=== PATIENT | male | born 1965 | race Caucasian/White ===

== ENCOUNTER 2016-04-07 20:54 | Emergency (ER) | payer BC, MEDICAID ==
[2016-04-07 21:04] VITALS: BP 146/52
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
== END 2016-04-07 23:03 | disposition home or self-care (01) ==
LOC: ED 20:54
DX: S51.012A Laceration without foreign body of left elbow, initial encounter (principal); T14.8 Other injury of unspecified body region; Y09 Assault by unspecified means; Y92.9 Unspecified place or not applicable; Y99.9 Unspecified external cause status
CPT/HCPCS: 99282

== ENCOUNTER 2017-05-02 16:07 | Emergency (ER) | payer BC, MEDICAID ==
--- NOTE | 2017-05-02 18:12 | RAD ---
INDICATION: Right thumb pain COMPARISON: None TECHNIQUE: AP, lateral, and oblique views were obtained. FINDINGS: There are no acute bony findings. 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 No significant soft tissue abnormality or foreign body. IMPRESSION: MILD OSTEOARTHRITIS. NO ACUTE FINDINGS.
--- NOTE | 2017-05-02 18:14 | UC ---
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 Tetanus UTD per pt- w/i 5 yrs - History Of Current Complaint Chief Complaint: UCUpperExtremity Stated Complaint: THUMB LAC WC Time Seen by Provider: 05/02/17 17:31 Hx Obtained From: Patient Laceration Location: Finger - right thumb Onset/Duration: Sudden Onset Severity: Moderate Pain Intensity: 4 Aggravating Factors: Movement - Allergies/Home Medications Allergies/Adverse Reactions: Allergies Allergy/AdvReac Type Severity Reaction Status Date / Time No Known Allergies Allergy Verified 11/13/14 08:07 PMH/Surg Hx/FS Hx/Imm Hx Previously Healthy: Yes Other History Of: Negative For: Anticoagulant Therapy - Surgical History Surgical History: Yes Surgery Procedure, Year, and Place: R ROTATOR CUFF REPAIR. L WRIST SURGERY. TONSILLECTOMY A CHILD - Social History Alcohol Use: Rare Substance Use Type: Marijuana Substance Use Comment - Amount & Last Used: RARE MARIJUANA USE Smoking Status (MU): Never Smoked Tobacco Review of Systems Constitutional: Negative Skin: Other - right thumb laceration Eyes: Negative ENT: Negative Respiratory: Negative Cardiovascular: Negative Gastrointestinal: Negative Genitourinary: Negative Motor: Negative Neurovascular: Negative Musculoskeletal: Negative Neurological: Negative Psychological: Negative All Other Systems Reviewed And Are Negative: Yes Physical Exam Triage Information Reviewed: Yes Appearance: Well-Appearing Vital Signs: Initial Vital Signs Temp 36.3 C 05/02/17 16:27 Pulse 105 05/02/17 16:27 Resp 18 05/02/17 16:27 BP 161/100 05/02/17 16:27 Pulse Ox 94 05/02/17 16:27 Eye Exam: Normal ENT Exam: Normal Dental Exam: Normal Neck exam: Normal Neck: Positive: 1 Respiratory Exam: Normal Cardiovascular Exam: Normal Abdominal Exam: Normal Musculoskeletal Exam: Normal Neurological Exam: Normal Psychological Exam: Normal Skin Exam: Normal Skin: Positive: significant lesion(s) - right edge of thumb laceration, linear clean, longitudinal width about 2cm, bleeding controlled with manual compression Laceration Repair - Laceration Repair 1 Description: Linear - wound irriagted with saline, dried, wound edges approximated with skin adhesive, pt tolerated procedure well Laceration Size After Repair: Length (cm) - 2, Width (mm) - 2 Contamination/FB Removal: none Cleansing Completed Via Routine Prep: Yes Irrigation With Pressure Irrigation Device: No Closure Material: Skin Adhesive Closure Method: Single Layer Suture Of: Skin Laceration Course/Dx - Course/Dx Course Of Treatment: XR right thumb neg - Differential Dx - Laceration/Wound Provider Diagnoses: Right thumb laceration Discharge - Discharge Plan Condition: Stable Disposition: HOME Prescriptions: Cephalexin CAP* [Keflex CAP*] 500 mg PO TID 7 Days #14 cap Patient Education Materials: Skin Adhesive Care (ED), Steristrips (ED) Referrals: Wilder Vasquez MD [Primary Care Provider] - Additional Instructions: return to clinic if pain worsens or wound opens keep sterri-strips intact, and DRY, cover wound when showering RETURN TO CLINIC IN 2 DAYS FOR A WOUND CHECK
[2017-05-02 18:24] VITALS: BP 110/70
== END 2017-05-02 18:38 | disposition home or self-care (01) ==
LOC: UCEAST 16:07
DX: S61.011A Laceration without foreign body of right thumb without damage to nail, initial encounter (principal); W29.8XXA Contact with other powered hand tools and household machinery, initial encounter; Y93.9 Activity, unspecified; Y92.511 Restaurant or cafe as the place of occurrence of the external cause; Y99.0 Civilian activity done for income or pay
CPT/HCPCS: 12001; 99212; 99213; G0463

== ENCOUNTER 2018-07-10 21:59 | Emergency (ER) | payer BC, MEDICAID ==
[2018-07-11] MEDS ORDERED: Tetan/Diph/Pertus SYR(Tdap)* 0.5 ML SYR(BOOSTRIX) use SYR IM ONE (01:17)
[2018-07-11] MEDS ORDERED: Lidocaine 2% EPI 1:200000 MPF*10-20 ML VIAL ONE (01:18)
--- NOTE | 2018-07-11 01:29 | ED ---
Laceration/Wound HPI - HPI Summary HPI Summary: This patient is a 53 year old male presenting to [facility] with a chief complaint of laceration on his right leg 3 hours ago. The patient says he fell on a fence and cut his leg. He says the bleeding is controlled and he is currently not in any pain. The patient does not know when he received his last tetanus vaccine. - History of Current Complaint Stated Complaint: RT LEG LAC PER PT Time Seen by Provider: 07/11/18 01:10 Hx Obtained From: Patient Onset/Duration: Lasting Hours Pain Intensity: 0 Pain Scale Used: 0-10 Numeric - Allergy/Home Medications Allergies/Adverse Reactions: Allergies Allergy/AdvReac Type Severity Reaction Status Date / Time No Known Allergies Allergy Verified 07/10/18 22:10 PMH/Surg Hx/FS Hx/Imm Hx Endocrine/Hematology History: Denies: Hx Anticoagulant Therapy, Hx Blood Disorders GI History: Reports: Hx Gastroesophageal Reflux Disease Sensory History: Reports: Hx Contacts or Glasses Denies: Hx Hearing Aid Opthamlomology History: Reports: Hx Contacts or Glasses Psychiatric History: Reports: Hx Anxiety - Surgical History Surgery Procedure, Year, and Place: R ROTATOR CUFF REPAIR. L WRIST SURGERY. TONSILLECTOMY A CHILD Hx Anesthesia Reactions: No Infectious Disease History: No Infectious Disease History: Denies: Traveled Outside the [place] in Last 30 Days - Family History Known Family History: Negative: Hypertension - Social History Alcohol Use: Weekly Alcohol Amount: 1-2 DRINKS Substance Use Type: Reports: Marijuana Substance Use Comment - Amount & Last Used: RARE MARIJUANA USE Smoking Status (MU): Never Smoked Tobacco Review of Systems Negative: Fever Positive: Other - Laceration on right leg All Other Systems Reviewed And Are Negative: Yes Physical Exam - Summary Physical Exam Summary: VITAL SIGNS: Reviewed. GENERAL: Patient is a well-developed and nourished FEMALE who is lying comfortable in the stretcher. Patient is not in any acute respiratory distress. HEAD AND FACE: No signs of trauma. No ecchymosis, hematomas or skull depressions. No sinus tenderness. EYES: PERRLA, EOMI x 2, No injected conjunctiva, no nystagmus. EARS: Hearing grossly intact. Ear canals and tympanic membranes are within normal limits. MOUTH: Oropharynx within normal limits. NECK: Supple, trachea is midline, no adenopathy, no JVD, no carotid bruit, no c- spine tenderness, neck with full ROM CHEST: Symmetric, no tenderness at palpation LUNGS: Clear to auscultation bilaterally. No wheezing or crackles. CVS: Regular rate and rhythm, S1 and S2 present, no murmurs or gallops appreciated. ABDOMEN: Soft, non-tender. No signs of distention. No rebound no guarding, and no masses palpated. Bowel sounds are normal. EXTREMITIES: FROM in all major joints, no edema, no cyanosis or clubbing. NEURO: Alert and oriented x 3. No acute neurological deficits. Speech is normal and follows commands. SKIN: Dry and warm. 2 cm laceration over upper right leg. Triage Information Reviewed: Yes Vital Signs On Initial Exam: Initial Vitals Temp Pulse Resp BP Pulse Ox 97.7 F 71 16 110/78 96 07/10/18 22:08 07/10/18 22:08 07/10/18 22:08 07/10/18 22:08 07/10/18 22:08 Vital Signs Reviewed: Yes Procedures - Laceration/Wound Repair 1 Location: lower extremity Anesthesia: 2.0%, [place], Epi Closure: [place] #__ Diagnostics - Vital Signs Vital Signs Temp Pulse Resp BP Pulse Ox 07/11/18 00:08 97.4 F 70 16 132/83 99 07/10/18 22:08 97.7 F 71 16 110/78 96 - Laboratory Lab Statement: Any lab studies that have been ordered have been reviewed, and results considered in the medical decision making process. Laceration Repair Course/Dx - Course Course Of Treatment: This patient is a 53 year old male presenting to [facility] with a chief complaint of laceration on his right leg 3 hours ago. The patient received billy to close his laceration. A plan for discharge was discussed with the patient and he was agreeable with this plan. - Clinical Impression Provider Diagnoses: Laceration Discharge - Sign-Out/Discharge Documenting (check all that apply): Patient Departure - Discharge Patient Received Moderate/Deep Sedation with Procedure: No - Discharge Plan Condition: Stable Disposition: HOME Patient Education Materials: Laceration (ED) Referrals: Wilder Vasquez MD [Primary Care Provider] - Additional Instructions: Get stitches removed in 2 weeks. Return to ED with any new or worsening symptoms. - Attestation Statements Document Initiated by Scribe: Yes Documenting Scribe: Nelson Gonzalez Provider For Whom Scribe is Documenting (Include Credential): Cherie Vickers MD Scribe Attestation: I, Nelson Gonzalez, scribed for Cherie Vickers MD on 07/11/18 at 0144. Status of Scribe Document: Ready
[2018-07-11 01:57] VITALS: BP 152/91
== END 2018-07-11 01:40 | disposition home or self-care (01) ==
LOC: ED 21:59
DX: S71.111A Laceration without foreign body, right thigh, initial encounter (principal); W18.09XA Striking against other object with subsequent fall, initial encounter; Y92.9 Unspecified place or not applicable; Z23 Encounter for immunization
CPT/HCPCS: 12001; 90471; 90715; 99282

== ENCOUNTER 2021-09-17 08:30 | Inpatient (IN) ==
[2021-09-17] MEDS ORDERED: Cefepime 2 GM in Dextrose 2 GM/50 ML BAG IV ONE (08:40)
[2021-09-17] MEDS ORDERED: Morphine 10 MG/ML VIAL (1 ml) IV PRN (08:54)
[2021-09-17] MEDS ORDERED: oxyCODONE/Acetamin 5/325 mg TAB PO PRN (08:54)
[2021-09-17] MEDS ORDERED: Lactated Ringers 1000 ml BAG 1,000 ML IV ONE (08:54)
[2021-09-17] MEDS ORDERED: Ondansetron 4 mg VIAL 2 MG/ML 2 ml VIAL IV PRN ×2 (08:54→19:22)
[2021-09-17] MEDS ORDERED: Vancomycin 1,500 MG in NS 0.9% 250 ml 250 ML IVPB ONE (09:00)
[2021-09-17] MEDS ORDERED: Lactated Ringers 1000 ml BAG 1,000 ML IV SCH (09:00)
[2021-09-17] MEDS ORDERED: Vancomycin per Pharmacy 1 EA NOTE FOLLOW UP SCH (10:00)
[2021-09-17 10:09] LABS: ABS Lymphocytes 0.9 10^3/ul (1.0-4.8); ABS Neutrophils 8.2 10^3/ul (1.5-7.7); Eosinophil % 0.2 %; Hematocrit 41 % (42-52); Hemoglobin 14.4 g/dL (14.0-18.0); Lymphocyte % 9.3 %; Mean Corpuscular HGB Conc 35 g/dL (31-36); Mean Corpuscular Hemoglobin 32 pg (27-31); Mean Corpuscular Volume 89 fL (80-94); Mean Platelet Volume 7.7 fL (7.4-10.4); Platelet Count 471 10^3/uL (150-450); Red Blood Count 4.56 10^6 /uL (4.18-5.48); Red Cell Distribution Width 12 % (10-15); White Blood Count 10.2 10^3/uL (3.5-10.8)
[2021-09-17 10:14] LABS: INR 1.41 (0.89-1.11)
[2021-09-17 10:48] LABS: Albumin 3.5 g/dL (3.2-5.2); Albumin/Globulin Ratio 1.1 (1-3); C Reactive Protein 139.84 mg/L (<8.01); Globulin 3.2 g/dL (2-4); Total Bilirubin 1.2 mg/dL (0.2-1.0); Total Protein 6.7 g/dL (6.4-8.9); eGFR CKD-EPI 107.9 (>60)
[2021-09-17] MEDS ORDERED: Magnesium Hydroxide LIQ 30 ML UDC PO PRN (12:00)
[2021-09-17] MEDS ORDERED: Senna TAB 8.6 mg TAB PO PRN (12:00)
[2021-09-17] MEDS ORDERED: ceFAZolin 2 GM in NS PREMIX 2 GM/100 ML BAG IVPB SCH ×2 (18:00→22:00)
[2021-09-17] MEDS ORDERED: Famotidine IV 10 MG/ML 2 ml VIAL (20 mg) ONE (18:07)
[2021-09-17] MEDS ORDERED: Naloxone 0.4 mg VIAL 0.4 mg/ml 1 ml VIAL IV PRN (19:22)
[2021-09-17] MEDS ORDERED: HYDROmorphone 1 MG/1 ML SYRINGE IV PRN (19:22)
[2021-09-17] MEDS ORDERED: Cefepime 2 GM in Dextrose 2 GM/50 ML BAG IV SCH (22:00)
[2021-09-17] MEDS: ceFAZolin 2 GM PREMIX 2 GM/50 ML BAG IVPB SCH (22:46)
[2021-09-17] MEDS: Magnesium Hydroxide LIQ 30 ML UDC PO SCH (22:54)
[2021-09-18] MEDS: ceFAZolin 2 GM PREMIX 2 GM/50 ML BAG IVPB SCH ×3 (05:59→21:36)
[2021-09-18 06:20] LABS: ABS Lymphocytes 0.8 10^3/ul (1.0-4.8); ABS Monocytes 0.6 10^3/ul (0-0.8); ABS Neutrophils 8.2 10^3/ul (1.5-7.7); Hematocrit 39 % (42-52); Hemoglobin 13.3 g/dL (14.0-18.0); Lymphocyte % 8.4 %; Mean Corpuscular HGB Conc 34 g/dL (31-36); Mean Corpuscular Hemoglobin 31 pg (27-31); Mean Corpuscular Volume 90 fL (80-94); Mean Platelet Volume 7.3 fL (7.4-10.4); Platelet Count 436 10^3/uL (150-450); Red Blood Count 4.32 10^6 /uL (4.18-5.48); Red Cell Distribution Width 13 % (10-15); White Blood Count 9.6 10^3/uL (3.5-10.8)
[2021-09-18 06:25] LABS: INR 1.37 (0.89-1.11)
[2021-09-18 06:59] LABS: Albumin 3.2 g/dL (3.2-5.2); C Reactive Protein 130.8 mg/L (<8.01); Calcium 8.4 mg/dL (8.6-10.3); Globulin 3.1 g/dL (2-4); Potassium 4.3 mmol/L (3.5-5.0); Total Bilirubin 0.6 mg/dL (0.2-1.0); Total Protein 6.3 g/dL (6.4-8.9); eGFR CKD-EPI 102.6 (>60)
[2021-09-18] MEDS: Magnesium Hydroxide LIQ 30 ML UDC PO SCH (10:12)
[2021-09-18] MEDS: Polyethylene Glycol 3350 17 GM PACKET PO PRN (13:50)
[2021-09-18] MEDS ORDERED: Calcium Carb (TUMS) 500 mg CHEW TAB PO PRN (14:38)
[2021-09-18] MEDS ORDERED: Polyethylene Glycol 3350 17 GM PACKET PO ONE (14:38)
[2021-09-19] MEDS: ceFAZolin 2 GM PREMIX 2 GM/50 ML BAG IVPB SCH ×3 (06:05→23:18)
[2021-09-19] MEDS: Polyethylene Glycol 3350 17 GM PACKET PO PRN (10:16)
[2021-09-20] MEDS: ceFAZolin 2 GM PREMIX 2 GM/50 ML BAG IVPB SCH ×3 (05:26→22:34)
[2021-09-20] MEDS: Polyethylene Glycol 3350 17 GM PACKET PO PRN ×2 (11:34→11:45)
[2021-09-20] MEDS ORDERED: Famotidine IV 10 MG/ML 2 ml VIAL (20 mg) IV SLOW PU ONE (18:00)
[2021-09-21] MEDS: ceFAZolin 2 GM PREMIX 2 GM/50 ML BAG IVPB SCH ×3 (06:06→20:10)
[2021-09-21 09:42] LABS: C Reactive Protein 63.87 mg/L (<8.01); Calcium 8.4 mg/dL (8.6-10.3); eGFR CKD-EPI 102.3 (>60)
[2021-09-21 10:17] LABS: ABS Basophils 0.1 10^3/ul (0-0.2); ABS Eosinophils 0.2 10^3/ul (0-0.6); ABS Lymphocytes 1.9 10^3/ul (1.0-4.8); ABS Monocytes 0.8 10^3/ul (0-0.8); ABS Neutrophils 10.6 10^3/ul (1.5-7.7); Eosinophil % 1.4 %; Hematocrit 38 % (42-52); Hemoglobin 13.3 g/dL (14.0-18.0); Lymphocyte % 13.8 %; Mean Corpuscular HGB Conc 35 g/dL (31-36); Mean Corpuscular Hemoglobin 32 pg (27-31); Mean Corpuscular Volume 92 fL (80-94); Mean Platelet Volume 7.8 fL (7.4-10.4); Nucleated Red Blood Cells % 0.1; Platelet Count 527 10^3/uL (150-450); Red Blood Count 4.18 10^6 /uL (4.18-5.48); Red Cell Distribution Width 13 % (10-15); White Blood Count 13.6 10^3/uL (3.5-10.8)
[2021-09-21] MEDS: Polyethylene Glycol 3350 17 GM PACKET PO PRN (11:16)
[2021-09-21] MEDS ORDERED: Heparin DRIP 25,000 UNITS BAG 25,000 UNITS/500 ML BAG IV SCH (18:15)
[2021-09-21] MEDS ORDERED: Heparin 5000 UNITS/ML 1 mL VIAL IV SCH (19:00)
[2021-09-21 19:36] LABS: ABS Eosinophils 0.1 10^3/ul (0-0.6); ABS Lymphocytes 1.5 10^3/ul (1.0-4.8); ABS Monocytes 0.5 10^3/ul (0-0.8); ABS Neutrophils 8.4 10^3/ul (1.5-7.7); Eosinophil % 1.4 %; Hematocrit 38 % (42-52); Lymphocyte % 14.4 %; Mean Corpuscular HGB Conc 34 g/dL (31-36); Mean Corpuscular Hemoglobin 32 pg (27-31); Mean Corpuscular Volume 93 fL (80-94); Mean Platelet Volume 7.3 fL (7.4-10.4); Platelet Count 559 10^3/uL (150-450); Red Blood Count 4.04 10^6 /uL (4.18-5.48); Red Cell Distribution Width 13 % (10-15); White Blood Count 10.7 10^3/uL (3.5-10.8)
[2021-09-21 19:55] LABS: eGFR CKD-EPI 105.7 (>60)
[2021-09-21] MEDS: Morphine 2 MG/ML SYRINGE IV PRN ×2 (20:09→23:38)
[2021-09-22 02:47] LABS: ABS Basophils 0.1 10^3/ul (0-0.2); ABS Eosinophils 0.2 10^3/ul (0-0.6); ABS Lymphocytes 1.8 10^3/ul (1.0-4.8); ABS Monocytes 0.7 10^3/ul (0-0.8); ABS Neutrophils 8.8 10^3/ul (1.5-7.7); Eosinophil % 1.6 %; Hematocrit 35 % (42-52); Hemoglobin 11.5 g/dL (14.0-18.0); Lymphocyte % 15.8 %; Mean Corpuscular HGB Conc 33 g/dL (31-36); Mean Corpuscular Hemoglobin 30 pg (27-31); Mean Corpuscular Volume 91 fL (80-94); Mean Platelet Volume 7.1 fL (7.4-10.4); Platelet Count 521 10^3/uL (150-450); Red Blood Count 3.88 10^6 /uL (4.18-5.48); Red Cell Distribution Width 13 % (10-15); White Blood Count 11.5 10^3/uL (3.5-10.8)
[2021-09-22] MEDS: Morphine 2 MG/ML SYRINGE IV PRN ×3 (03:21→16:10)
[2021-09-22] MEDS: ceFAZolin 2 GM PREMIX 2 GM/50 ML BAG IVPB SCH (05:26)
[2021-09-22] MEDS ORDERED: DAPTOmycin SDV 500 MG in NS 0.9% 50 ML 50 ML IVPB SCH (12:00)
[2021-09-22] MEDS: Polyethylene Glycol 3350 17 GM PACKET PO PRN (12:44)
[2021-09-22 19:19] VITALS: BP 132/78
== END 2021-09-22 23:45 | disposition home or self-care (01) | DRG 313 ==
LOC: EDHOLD 08:30 → ED 08:30 → SSU 10:35
PROVIDERS: ADMIT Orthopaedic Surgery Adult Reconstructive Orthopaedic Surgery; ATTEND Orthopaedic Surgery Adult Reconstructive Orthopaedic Surgery

== ENCOUNTER 2023-10-13 10:38 | Inpatient (IN) ==
[2023-10-13 14:33] LABS: ABS Lymphocytes 1.6 10^3/uL (1.0-4.8); ABS Monocytes 0.4 10^3/uL (0.0-1.1); ABS Neutrophils 6.9 10^3/uL (1.5-7.6); Eosinophil % 0.4 %; Hematocrit 40.8 % (38-53); Hemoglobin 14.1 g/dL (13.2-16.3); Mean Corpuscular Hemoglobin 30.4 pg (27-33); Mean Corpuscular Hgb Conc 34.7 g/dL (31-36); Mean Corpuscular Volume 87.7 fL (80-97); Mean Platelet Volume 7.7 fL (7.5-11.2); Platelet Count 224 10^3/uL (150-450); Red Blood Count 4.65 10^6/uL (4.06-5.63)
[2023-10-13 15:08] LABS: ALT 28 U/L (7-52); AST 23 U/L (13-39); Acetaminophen < 15 mcg/mL; Albumin 4.2 g/dL (3.2-5.2); Albumin/Globulin Ratio 1.9 (1-3); Alcohol, S < 13 mg/dL (<13); Alkaline Phosphatase 84 U/L (35-149); Anion Gap 7 mmol/L (2-16); Blood Urea Nitrogen 16 mg/dL (6-24); CO2 Carbon Dioxide 27 mmol/L (22-32); Calcium 9.1 mg/dL (8.6-10.3); Chloride 103 mmol/L (101-111); Creatinine, Serum 0.73 mg/dL (0.67-1.17); Globulin 2.2 g/dL (2-4); Glucose 182 mg/dL (70-100); Potassium 3.3 mmol/L (3.5-5.0); Salicylate < 2.50 mg/dL (<30); Sodium 137 mmol/L (135-145); Total Bilirubin 0.6 mg/dL (0.2-1.0); Total Protein 6.4 g/dL (6.4-8.9); eGFR CKD-EPI 106.1 (>60)
[2023-10-13 15:17] LABS: TSH Ultra Thyroid Stim Horm 0.99 mcIU/mL (0.34-5.60)
[2023-10-13 16:51] LABS: Urine Appearance Clear; Urine Bilirubin Negative (Negative); Urine Blood Negative (Negative); Urine Color Yellow; Urine Glucose Negative (Negative); Urine Ketones 1+ (Negative); Urine Nitrite Negative (Negative); Urine Protein Trace (Negative); Urine Specific Gravity 1.036 (1.002-1.030); Urine Urobilinogen Negative (Negative); Urine pH 5.5 (5.0-8.0)
[2023-10-13 17:19] LABS: Urine Benzodiazepine Screen None Detected (None Detect); Urine Cannabinoids Screen Presumptive Positive (None Detect); Urine Opiates Screen None Detected (None Detect)
[2023-10-14 08:07] LABS: HDL Cholesterol 38.7 mg/dL
[2023-10-15] MEDS: Polyethylene Glycol 3350 17 GM PACKET ONE (17:50)
[2023-10-15] MEDS: OLANZapine 5 mg TAB *ODT ONE ×2 (17:50→23:54)
[2023-10-15] MEDS: OLANZapine 5 mg TAB *ODT PO ONE (20:37)
[2023-10-16] MEDS: OLANZapine 5 mg TAB *ODT PO ONE (00:58)
[2023-10-16] MEDS: Polyethylene Glycol 3350 17 GM PACKET PO PRN ×2 (08:38→20:56)
[2023-10-16] MEDS: OLANZapine 5 mg TAB *ODT ONE (14:59)
[2023-10-16] MEDS: OLANZapine 5 mg TAB *ODT PO SCH (18:32)
[2023-10-16] MEDS: Polyethylene Glycol 3350 17 GM PACKET ONE (19:28)
[2023-10-17] MEDS: Magnesium CITRATE LIQ 300 ML BTL PO ONE (13:21)
[2023-10-18] MEDS: OLANZapine 10 mg TAB*ODT PO SCH (21:02)
[2023-10-19] MEDS: OLANZapine 5 mg TAB *ODT PO SCH ×2 (08:44→20:32)
[2023-10-20] MEDS: OLANZapine 10 mg TAB*ODT PO SCH (21:48)
[2023-10-21] MEDS: OLANZapine 5 mg TAB *ODT PO SCH (08:36)
[2023-10-21] MEDS: Al Hydrox/Mg Hydrox/Simet LIQ 30 ML UDC PO PRN (22:06)
[2023-10-25] MEDS: Saline NASAL SPRAY 0.65% BTL BOTH NARES PRN (21:11)
[2023-10-26 09:58] LABS: Free T4 0.75 ng/dL (0.61-1.12)
[2023-10-27] MEDS: OLANZapine 5 mg TAB *ODT PO SCH (11:38)
[2023-10-28] MEDS: OLANZapine 5 mg TAB *ODT PO PRN (14:45)
[2023-11-02 09:25] VITALS: BP 130/82
== END 2023-11-03 12:00 | disposition home or self-care (01) | DRG 885 ==
LOC: ED 10:38 → EDHOLD 13:55 → BSU 16:35
PROVIDERS: ADMIT Psychiatry & Neurology Psychiatry; ATTEND Psychiatry & Neurology Psychiatry